=== PATIENT | female | born 1930 ===

== ENCOUNTER 2018-07-25 07:00 | Day surgery (SDC) | payer OTHER ==
[~2018-07-25] VITALS: Ht 160 cm; Wt 64.4 kg
[~2018-07-25 07:00] MED LIST: ACIDOPHILUS1 EAC3 PO; ADULT LOW DOSE81 M1 PO; ALAVERT D-12 A1 EACH PO; DILTIAZEM 24HR120 MG PO; HORSE CHESTNUT300 M1 PO; LEVOCETIRIZINE D5 MG PO; MAGNESIUM 300300 MG PO; MAXIMUM D310000 UNIT PO; MIRAPEX0.125 MG PO; SENSIPAR30 MG PO; SPIRONOLACTONE50 MG PO; SYNTHROID175 MCG PO; TRANXENE T-TAB7.5 MG PO
== END 2018-07-25 13:00 | disposition home or self-care (01) ==
LOC: CIR.AMB 07:00 → SURH 07:00 → EDSTATUS 13:00 → CIR.AMB 13:00 → O/R 13:55
DX: C21.8 Malignant neoplasm of overlapping sites of rectum, anus and anal canal (principal)